=== PATIENT | female | born 1940 | race Caucasian/White ===

== ENCOUNTER 2016-12-23 11:08 | Emergency (ER) | payer MEDICARE, OTHER ==
[2016-12-23] MEDS ORDERED: DEXAMETHASONE 10 MG/ML VIAL PO STA (11:58)
[2016-12-23] MEDS ORDERED: DEXAMETHASONE 10 MG/ML VIAL ONE (12:03)
[2016-12-23] MEDS ORDERED: CHERRY SYRUP 10 ML UDC PO ONE (12:03)
== END 2016-12-23 12:09 | disposition home or self-care (01) ==
DX: J06.9 Acute upper respiratory infection, unspecified (principal); B97.89 Other viral agents as the cause of diseases classified elsewhere
CPT/HCPCS: 87070; 87430; 99283; A9270

== ENCOUNTER 2018-11-21 17:20 | Emergency (ER) | payer MEDICARE, OTHER ==
[2018-11-21 17:31] VITALS: BP 154/72
[2018-11-21 17:54] LABS: BILIRUBIN,URINE NEGATIVE (NEGATIVE); GLUCOSE, URINE (UA) NEGATIVE (NEGATIVE); KETONES,URINE (UA) NEGATIVE (NEGATIVE); LEUKOCYTE ESTERASE, URINE NEGATIVE (NEGATIVE); NITRITE,URINE NEGATIVE (NEGATIVE); OCCULT BLOOD,URINE TRACE-INTA (NEGATIVE); PH,URINE 5.5 PH (5.0-7.5); PROTEIN,URINE NEGATIVE (NEGATIVE); UROBILINOGEN,URINE 0.2 (NORMAL) E.U./dL (NORMAL)
[2018-11-21 18:21] LABS: CLARITY,URINE CLEAR (CLEAR)
--- NOTE | 2018-11-21 18:33 | ED Physician Documentation ---
PD HPI FEMALE - Stated complaint Stated Complaint: FEM - Chief complaint Chief Complaint: UTI - History obtained from History obtained from: Patient - History of Present Illness Timing - onset: Other (Blood in urine today and low abd discomfort. Started budesonide today for colitis. [place] tinged urine at 10am and 1530 today.) Review of Systems Constitutional: denies: Fever, Chills GI: reports: Abdominal Pain (mild low abd). denies: Nausea, Vomiting : denies: Dysuria, Frequency PD PAST MEDICAL HISTORY - Past Medical History Past Medical History: Yes GI: Cholelithiasis - Past Surgical History Past Surgical History: Yes Ortho: Hip replacement - Present Medications Home Medications: Ambulatory Orders Medication Instructions Recorded Confirmed Budesonide [Budesonide EC] 3 mg PO DAILY 11/21/18 11/21/18 - Allergies Allergies/Adverse Reactions: Allergies Allergy/AdvReac Type Severity Reaction Status Date / Time No Known Drug Allergies Allergy Verified 11/21/18 17:31 - Social History Does the pt smoke?: No Smoking Status: Never smoker Does the pt drink ETOH?: Yes Does the pt have substance abuse?: No - Immunizations Immunizations are current?: Yes PD ED PE NORMAL - Vitals Vital signs reviewed: Yes - General General: Alert and oriented X 3, No acute distress - Abdomen Abdomen: Soft, Non tender - Neuro Neuro: Alert and oriented X 3, Normal speech - Psych Psych: Normal mood, Normal affect Results - Vitals Vitals: Vital Signs - 24 hr 11/21/18 17:28 Temperature 36.6 C Heart Rate 80 Respiratory 20 Rate Blood Pressure 154/72 H O2 Saturation 99 Oxygen O2 Source Room air - Labs Labs: Laboratory Tests 11/21/18 17:42 Urine Color LT RED Urine Clarity CLEAR Urine pH 5.5 Ur Specific [place] 1.010 Urine Protein NEGATIVE Urine Glucose (UA) NEGATIVE Urine Ketones NEGATIVE Urine Occult Blood TRACE-INTA Urine Nitrite NEGATIVE Urine Bilirubin NEGATIVE Urine Urobilinogen 0.2 (NORMAL) Ur Leukocyte Esterase NEGATIVE Ur Microscopic Review NOT INDICATED Urine Culture Comments NOT INDICATED PD MEDICAL DECISION MAKING - ED course ED course: Urine was normal, on further history she ate beets yesterday. Departure - Departure Disposition: 01 Home, Self Care Clinical Impression: Red urine due to beet ingestion Condition: Good Record reviewed to determine appropriate education?: Yes Comments: Return as needed
== END 2018-11-21 18:43 | disposition home or self-care (01) ==
LOC: ED 17:20
DX: R82.998 Other abnormal findings in urine (principal); Z96.649 Presence of unspecified artificial hip joint
CPT/HCPCS: 81001; 81003; 81599; 87086; 99282

== ENCOUNTER 2020-09-30 21:13 | Outpatient (CLI) | payer MEDICARE, OTHER | END 2020-09-30 21:14 | disposition home or self-care (01) | LOC: COV 21:13 | PROVIDERS: ATTEND Family Medicine | DX: R50.9 Fever, unspecified (principal); R05 Cough; R06.02 Shortness of breath; R53.83 Other fatigue; R07.0 Pain in throat; R19.7 Diarrhea, unspecified; R09.81 Nasal congestion; J34.89 Other specified disorders of nose and nasal sinuses; Z20.828 Contact with and (suspected) exposure to other viral communicable diseases ==

== ENCOUNTER 2022-10-30 08:54 | Emergency (ER) | payer MEDICARE, OTHER ==
--- NOTE | 2022-10-30 09:20 | ED Physician Documentation ---
History of Present Illness - Stated complaint Stated Complaint: HIGH HR - History obtained from History obtained from: Patient - Additonal information Additional information: For the last week and a half or so she is felt a pounding in her ears when she lays down and intermittently notes rapid heart rates. Specifically she notes that when she goes hiking her starting heart rate is usually in the low 70s and lately its been in the mid 80s. That said she denies palpitations, chest pain, trouble breathing, fatigue. No pedal edema. She uses an [employer] and it has not given her any arrhythmia alarms. Review of Systems Constitutional: denies: Fever, Chills Cardiac: denies: Chest pain / pressure, Palpitations Respiratory: denies: Dyspnea, Cough PD PAST MEDICAL HISTORY - Past Medical History GI: Cholelithiasis - Past Surgical History Past Surgical History: Yes Ortho: Hip replacement - Present Medications Home Medications: Ambulatory Orders Medication Instructions Recorded Confirmed No Known Home Medications 10/30/22 10/30/22 - Allergies Allergies/Adverse Reactions: Allergies Allergy/AdvReac Type Severity Reaction Status Date / Time No Known Drug Allergies Allergy Verified 10/30/22 09:15 - Social History Does the pt smoke?: No Smoking Status: Never smoker Does the pt drink ETOH?: Yes Does the pt have substance abuse?: No - Immunizations Immunizations are current?: Yes PD ED PE NORMAL - Vitals Vital signs reviewed: Yes (She is noted to be hypertensive) - General General: Alert and oriented X 3, No acute distress - HEENT HEENT: PERRL, EOMI - Neck Neck: Supple, no meningeal sign, No bony TTP, Other (No bruit) - Cardiac Cardiac: RRR, Other (With frequent extrasystoles, corresponding to PACs more than PVCs on the monitor, not more than a few a minute.) - Respiratory Respiratory: No respiratory distress, Clear bilaterally - Abdomen Abdomen: Normal bowel sounds, Soft, Non tender - Back Back: No CVA TTP, No spinal TTP - Derm Derm: Normal color, Warm and dry - Extremities Extremities: No edema, No calf tenderness / cord - Neuro Neuro: Alert and oriented X 3, Normal speech Eye Opening: Spontaneous Motor: Obeys Commands Verbal: Oriented GCS Score: 15 - Psych Psych: Normal mood, Normal affect Results - Vitals Vitals: Vital Signs - 24 hr 10/30/22 10/30/22 09:00 10:35 Temperature 36.6 C 36.6 C Heart Rate 64 60 Respiratory 12 14 Rate Blood Pressure 191/112 H 171/96 H O2 Saturation 100 99 Oxygen O2 Source Room air - EKG (time done) 0858 Rate: Rate (enter#) (67) Rhythm: NSR (W PAC), LAE [place]: Normal Intervals: Normal VT QRS: Normal Ischemia: Normal ST segments - Labs Labs: Laboratory Tests 10/30/22 10/30/22 10/30/22 09:17 09:17 09:17 WBC 3.6 L RBC 4.24 Hgb 13.2 Hct 41.2 MCV 97.2 MCH 31.1 H MCHC 32.0 RDW 13.2 Plt Count 246 MPV 10.1 Neut # (Auto) 2.5 Lymph # (Auto) 0.8 L [place] # (Auto) 0.3 Eos # (Auto) 0.0 Baso # (Auto) 0.0 Absolute Nucleated RBC 0.00 Nucleated RBC % 0.0 Sodium 134 L Potassium 4.0 Chloride 95 L Carbon Dioxide 30 Anion Gap 9.0 BUN 28 H Creatinine 0.8 Estimated GFR (MDRD) 69 L Glucose 113 H Calcium 9.0 Magnesium 1.9 Total Bilirubin 0.8 AST 24 ALT 18 Alkaline Phosphatase 72 Total Protein 7.3 Albumin 4.1 Globulin 3.2 Albumin/Globulin Ratio 1.3 TSH 2.49 PD Medical Decision Making - ED course ED course: 81-year-old woman presents with pounding in her ears and higher than average heart rates. I considered carotid stenosis, that said the pounding is bilaterally and she has no bruit. She does have some ectopy but not a lot. In termittent A. fib would be a possibility and we will keep her on the monitor here for a time to assess. We will check her electrolytes, TSH, CBC. Her EKG is nonischemic and she has no chest pain so doubt ACS. Review of her CBC demonstrates lymphopenia. This is a nonspecific finding. We did discuss if she had any COVID symptoms and she does not. Review of her comprehensive metabolic panel shows modest elevation of her BUN with low sodium and chloride albeit mild. This could be consistent with dehydration and we recommended increased fluid intake. Her TSH is normal. Departure - Departure Disposition: Home, Self Care Clinical Impression: Palpitations Condition: Good Record reviewed to determine appropriate education?: Yes Instructions: ED Palpitations Comments: Although you have rare premature atrial contractions, I would not consider that pathologic per se. It does look like you are dehydrated on your labs, focus on increased fluid intake and follow-up with your doctor towards the end of the week. Return for new or worsening symptoms.
[2022-10-30 09:21] LABS: BASOPHILS % (AUTO) 0.8 %; EOSINOPHILS % (AUTO) 0.8 %; HCT - HEMATOCRIT 41.2 % (37.0-47.0); HGB - HEMOGLOBIN 13.2 g/dL (12.0-16.0); LYMPHOCYTES # (AUTO) 0.8 10^3/uL (1.5-3.5); LYMPHOCYTES % (AUTO) 21.7 %; MEAN CORPUSCULAR HEMOGLOBIN 31.1 pg (27.0-31.0); MEAN CORPUSCULAR VOLUME 97.2 fL (81.0-99.0); MEAN PLATELET VOLUME 10.1 fL (7.9-10.8); MONOCYTES # (AUTO) 0.3 10^3/uL (0.0-1.0); MONOCYTES % (AUTO) 7.1 %; NEUTROPHILS # (AUTO) 2.5 10^3/uL (1.5-6.6); NEUTROPHILS % (AUTO) 69.3 %; PLT - PLATELET COUNT 246 10^3/uL (130-450); RED BLOOD COUNT 4.24 10^6/uL (4.20-5.40); RED CELL DISTRIBUTION WIDTH 13.2 % (12.0-15.0); WHITE BLOOD COUNT 3.6 x10^3/uL (4.8-10.8)
[2022-10-30 09:44] LABS: ALBUMIN 4.1 g/dL (3.2-5.5); ALBUMIN/GLOBULIN RATIO 1.3 (1.0-2.2); BILIRUBIN,TOTAL 0.8 mg/dL (0.2-1.0); CREATININE 0.8 mg/dL (0.4-1.0); MAGNESIUM 1.9 mg/dL (1.7-2.8); TOTAL PROTEIN 7.3 g/dL (6.7-8.2)
[2022-10-30 10:37] VITALS: BP 171/96
== END 2022-10-30 10:46 | disposition home or self-care (01) ==
LOC: ED 08:54
DX: R00.2 Palpitations (principal)
CPT/HCPCS: 36415; 80053; 83735; 84443; 85025; 93005; 99283; 99284

== ENCOUNTER 2024-02-29 08:00 | Outpatient (CLI) | payer MEDICARE, OTHER ==
[2024-02-29 19:39] LABS: BACTERIAL VAGINOSIS DNA NEGATIVE (NEGATIVE); CANDIDA GLABRATA DNA NEGATIVE (NEGATIVE); CANDIDA GROUP DNA NEGATIVE (NEGATIVE); CANDIDA KRUSEI DNA NEGATIVE (NEGATIVE); TRICHOMONAS VAGINALIS DNA NEGATIVE (NEGATIVE)
== END 2024-02-29 23:59 | disposition home or self-care (01) ==
LOC: LAB.S 08:00
PROVIDERS: ATTEND Registered Nurse
DX: N12 Tubulo-interstitial nephritis, not specified as acute or chronic (principal); N89.8 Other specified noninflammatory disorders of vagina
CPT/HCPCS: 81514; 87086